=== PATIENT | male | born 1995 | race Caucasian/White ===

== ENCOUNTER 2018-08-19 18:14 | Emergency (ER) | payer BC, MEDICAID, OTHER ==
[2018-08-19] MEDS ORDERED: IBUPROFEN 600 MG TABLET ONE (19:24)
== END 2018-08-19 20:13 | disposition home or self-care (01) ==
LOC: EDH 18:14
DX: S61.210A Laceration without foreign body of right index finger without damage to nail, initial encounter (principal); Z88.1 Allergy status to other antibiotic agents; W45.8XXA Other foreign body or object entering through skin, initial encounter; Y93.89 Activity, other specified; Y92.098 Other place in other non-institutional residence as the place of occurrence of the external cause; Y99.8 Other external cause status
CPT/HCPCS: 12041; 73140